=== PATIENT | female | born 1995 | race American Indian/Alaskan Native ===

== ENCOUNTER 2017-03-02 06:24 | Emergency (ER) | payer OTHER ==
[2017-03-02 06:36] VITALS: RESP 16
[2017-03-02] MEDS ORDERED: Tobramycin 0.3% OPHT SOLN OU STA (07:31)
--- NOTE | 2017-03-02 07:43 | C.PDOC ---
History Of Present Illness 21 yr old female presents to the ER with complaints of redness in both eye and runny nose for 1 day. Patient reports she is 37 weeks . Patient denies fever, vision changes, chest pain, SOB, nausea, vomiting, abdominal pain, diarrhea, vaginal discharge, vaginal bleeding, weakness or numbness. Time Seen by Provider: 03/02/17 07:13 Chief Complaint (Nursing): Eye Problem History Per: Patient History/Exam Limitations: no limitations Onset/Duration Of Symptoms: Days (1) Current Symptoms Are (Timing): Still Present Injury To Eye?: No Recent travel outside of the [place]: No Past Medical History Reviewed: Historical Data, Nursing Documentation, Vital Signs Vital Signs: Last Vital Signs Temp 98.2 F 03/02/17 08:10 Pulse 90 03/02/17 08:10 Resp 16 03/02/17 08:10 BP 135/70 03/02/17 08:10 Pulse Ox 99 03/02/17 08:10 - Medical History PMH: No Chronic Diseases Surgical History: No Surg Hx Family History: States: No Known Family Hx - Social History Hx Tobacco Use: No Hx Alcohol Use: No Hx Substance Use: No - Immunization History Hx Influenza Vaccination: No Hx Pneumococcal Vaccination: No Review Of Systems Except As Marked, All Systems Reviewed And Found Negative. Constitutional: Negative for: Fever Eyes: Positive for: Eyelid Inflammation, Redness (Bilateral ). Negative for: Vision Change ENT: Positive for: Nose Discharge (Runny nose) Cardiovascular: Negative for: Chest Pain Respiratory: Negative for: Shortness of Breath Gastrointestinal: Negative for: Nausea, Vomiting, Abdominal Pain, Diarrhea Genitourinary: Negative for: Vaginal Discharge, Vaginal Bleeding Neurological: Negative for: Weakness, Numbness Physical Exam - Physical Exam Appears: Non-toxic, No Acute Distress Skin: Warm, Dry, No Rash Head: Atraumatic, Normacephalic Eye(s): bilateral: PERRL, EOMI, Other (Bilateral injection. Bilateral crusting.) , right: Eyelid Inflammation Ear(s): Bilateral: Normal Oral Mucosa: Moist Throat: Normal, No Erythema, No Exudate Neck: Normal, Normal ROM, Supple Chest: Symmetrical, No Tenderness Cardiovascular: Rhythm Regular, No Friction Rub, No Murmur Respiratory: Normal Breath Sounds, No Rales, No Rhonchi, No Wheezing Gastrointestinal/Abdominal: Normal Exam, Soft, No Tenderness, No Guarding, No Rebound Extremity: Normal ROM, No Swelling Neurological/Psych: Oriented x3, Normal Speech Gait: Steady ED Course And Treatment O2 Sat by Pulse Oximetry: 98 Progress Note: Treated with tobramycin opth solution. Discharged in stable condition, advised ti follow up with SERVER and opthomology in 2 days Reassessment Condition: Improved Medical Decision Making Medical Decision Making: PLAN: * Tobermycin OU Disposition - Disposition Referrals: Domingo Friedman MD [Staff Provider] - Disposition: HOME/ ROUTINE Disposition Time: 08:20 Condition: GOOD Additional Instructions: return to ED if any increase symptoms Prescriptions: Tobramycin 0.3% [Tobramycin 5 Ml] 2 drop OP Q6 #1 bottle Instructions: Conjunctivitis (ED) - POA Present On Arrival: None - Clinical Impression Clinical Impression: Eye infection, Conjunctivitis - PA / [employer] / Resident Statement MD/DO has reviewed & agrees with the documentation as recorded. - Scribe Statement The provider has reviewed the documentation as recorded by the Scribe Leatha Cook All medical record entries made by the Scribe were at my direction and personally dictated by me. I have reviewed the chart and agree that the record accurately reflects my personal performance of the history, physical exam, medical decision making, and the department course for this patient. I have also personally directed, reviewed, and agree with the discharge instructions and disposition.
--- NOTE | 2017-03-02 07:46 | C.PDOC ---
Time Seen by Provider: 03/02/17 07:13 Chief Complaint (Nursing): Eye Problem Past Medical History Vital Signs: Last Vital Signs Temp 98.3 F 03/02/17 06:33 Pulse 91 H 03/02/17 06:33 Resp 16 03/02/17 06:33 BP 129/84 03/02/17 06:33 Pulse Ox 98 03/02/17 06:33 Family History: States: Unknown Family Hx - Social History Hx Alcohol Use: No Hx Substance Use: No - Immunization History Hx Influenza Vaccination: No Hx Pneumococcal Vaccination: No ED Course And Treatment O2 Sat by Pulse Oximetry: 98 Disposition Counseled Patient/Family Regarding: Diagnosis, Need For Followup, Rx Given - Disposition Referrals: Domingo Friedman MD [Staff Provider] - Disposition: HOME/ ROUTINE Disposition Time: 08:00 Condition: GOOD Prescriptions: Tobramycin 0.3% [Tobramycin 5 Ml] 2 drop OP Q6 #1 bottle Instructions: Conjunctivitis (ED)
[2017-03-02] MEDS ORDERED: Tobramycin 0.3% OPH OINT ONE (07:54)
[2017-03-02 08:17] VITALS: BP 135/70; PULSE 90; TEMP 98.2
[2017-03-02 08:22] VITALS: O2SAT 98
== END 2017-03-02 08:10 | disposition home or self-care (01) ==
LOC: C.ER 06:24
DX: H10.9 Unspecified conjunctivitis (principal); H44.003 Unspecified purulent endophthalmitis, bilateral

== ENCOUNTER 2017-04-04 17:52 | Emergency (ER) | payer OTHER ==
--- NOTE | 2017-04-04 18:08 | C.PDOC ---
History Of Present Illness Patient is a 22 year old female presents to the ER c/o shivering and lightheadedness since this morning. Patient notes that she had similar symptoms in March after she delivered her baby--the shivering lasted for 2 days and was told that her blood count was low. Patient reports that an iron infusion was going to be adminstered while admitted to the hospital but when shivering self resolved they did not administer it. Patient notes shivering is back today. Patient denies vaginal bleeding, fever, nausea, vomiting, or any other complaints. Patients PMD is Dr. Hou. Time Seen by Provider: 04/04/17 18:03 Chief Complaint (Nursing): Dizziness/Lightheaded History Per: Patient History/Exam Limitations: no limitations Onset/Duration Of Symptoms: Hrs Current Symptoms Are (Timing): Still Present Fall Associated With With Symptoms: No Severity: Mild Recent travel outside of the [place]: No Additional History Per: Patient Past Medical History Reviewed: Historical Data, Nursing Documentation, Vital Signs Vital Signs: Last Vital Signs Temp 99.2 F 04/04/17 18:15 Pulse 85 04/04/17 18:15 Resp 14 04/04/17 18:15 BP 137/83 04/04/17 18:15 Pulse Ox 99 04/04/17 18:15 - Medical History PMH: Anemia Family History: States: Unknown Family Hx - Social History Hx Tobacco Use: No Hx Alcohol Use: No Hx Substance Use: No - Immunization History Hx Influenza Vaccination: No Hx Pneumococcal Vaccination: No Review Of Systems Except As Marked, All Systems Reviewed And Found Negative. Constitutional: Positive for: Other (Shivering). Negative for: Fever Gastrointestinal: Negative for: Nausea, Vomiting Neurological: Positive for: Other (Lightheadedness) Physical Exam - Physical Exam Appears: Well, Non-toxic, No Acute Distress, Other (no shivering during my physical exam) Skin: Normal Color, Warm, Dry Head: Atraumatic, Normacephalic Eye(s): bilateral: Conjunctiva Pale (Conjunctiva palpebral) Ear(s): Bilateral: Normal Nose: Normal Oral Mucosa: Moist Tongue: Normal Appearing Lips: Normal Appearing Throat: Normal Neck: Normal, Normal ROM Lymphatic: Deferred Chest: Symmetrical Cardiovascular: Rhythm Regular, No Murmur Respiratory: Normal Breath Sounds, No Rales, No Rhonchi, No Wheezing Gastrointestinal/Abdominal: Normal Exam, Bowel Sounds, Soft, No Tenderness Rectal: Deferred Back: Normal Inspection Extremity: Capillary Refill (less than 2 seconds) Extremity: Bilateral: Atraumatic Neurological/Psych: Oriented x3, Normal Speech, Normal Cognition Medical Decision Making Medical Decision Making: Initial Impression: Shivering by history Differential Diagnosis includes but is not limited to: anemia, eletrolyte imbalance Initial Plan: -Blood labs -IV fluids -UA -Reassess and disposition Disposition - Disposition Disposition Time: 19:00 Condition: FAIR - Clinical Impression Clinical Impression: Lightheadedness - Scribe Statement The provider has reviewed the documentation as recorded by the Scribe Cassandra champagne All medical record entries made by the Scribe were at my direction and personally dictated by me. I have reviewed the chart and agree that the record accurately reflects my personal performance of the history, physical exam, medical decision making, and the department course for this patient. I have also personally directed, reviewed, and agree with the discharge instructions and disposition. Physician Patient Turnover Patient Signed Over To: Felisha Hahn Handoff Comments: Follow up lab work and reassess patient
[2017-04-04] MEDS ORDERED: Sodium Chloride 0.9% 1,000 ML IV ONE (18:13)
[2017-04-04] MEDS ORDERED: Sodium Chloride 0.9% 1,000 ML ONE (18:27)
[2017-04-04 18:45] LABS: RBC URINE 12 /hpf (0-3); URINE BACTERIA MOD (<OCC); URINE BILIRUBIN NEGATIVE (NEGATIVE); URINE BLOOD 1+ (NEGATIVE); URINE COLOR Yellow (YELLOW); URINE GLUCOSE (UA) NORMAL (Normal); URINE KETONE NEGATIVE (NEGATIVE); URINE LEUKOCYTE ESTERASE 3+ Leu/uL (Negative); URINE PROTEIN NEGATIVE (NEGATIVE); WBC URINE 27 /hpf (0-5)
[2017-04-04 18:47] LABS: BASO # 0.1 K/uL (0.0-0.2); BASO % 0.7 % (0.0-2.0); EOS # 0.2 K/uL (0.0-0.7); EOS % 2.5 % (0.0-4.0); HEMATOCRIT 31.7 % (34.0-47.0); LYMPH # 2.1 K/uL (1.0-4.3); LYMPH % 24.9 % (20.0-40.0); MEAN CELL VOLUME 75.7 fL (81.0-99.0); MEAN CORPUSCULAR HEMOGLOBIN 23.4 pg (27.0-31.0); MEAN CORPUSCULAR HGB CONC 30.9 g/dL (33.0-37.0); MEAN PLATELET VOLUME 6.9 fL (7.2-11.7); MONO # 0.5 K/uL (0.0-0.8); MONO % 5.9 % (0.0-10.0); RED CELL DISTRIBUTION WIDTH 14.7 % (11.5-14.5); WHITE BLOOD COUNT 8.4 K/uL (4.8-10.8)
[2017-04-04 18:55] LABS: POTASSIUM 2.8 mmol/L (3.6-5.2); SODIUM 139 mmol/L (132-148)
[2017-04-04 18:58] LABS: ALB/GLOB RATIO 1.2 (1.0-2.1); ALKALINE PHOSPHATASE 117 U/L (38-126); ALT/SGPT 22 U/L (9-52); AST/SGOT 23 U/L (14-36); BILIRUBIN,TOTAL 0.9 mg/dL (0.2-1.3); BLOOD UREA NITROGEN 6 mg/dL (7-17); CARBON DIOXIDE 31 mmol/L (22-30); GFR AFRICAN-AMERICAN > 60; GLUCOSE,RANDOM 104 mg/dL (65-105); TOTAL PROTEIN 7.5 g/dL (6.3-8.3)
[2017-04-04 18:59] LABS: CALCIUM 8.7 mg/dl (8.6-10.4)
[2017-04-04] MEDS ORDERED: Potassium Chloride 20 mEq/15 ml LIQ UD PO STA (19:01)
[2017-04-04] MEDS ORDERED: Potassium Chloride 20 mEq/15 ml LIQ UD ONE (19:31)
[2017-04-04 19:37] LABS: VENOUS BLOOD GAS BASE EXCESS 1.7 mmol/L (0.0-2.0); VENOUS BLOOD GAS PCO2 42 mmHg (40-60); VENOUS BLOOD PH 7.41 (7.32-7.43)
[2017-04-04] MEDS ORDERED: cefTRIAXone IV 1 gm in Dextros 50 ML IVPB ONE ×2 (19:55→20:30)
[2017-04-04 21:27] VITALS: BP 130/80; PULSE 82; RESP 20; TEMP 99; O2SAT 97
[2017-04-05 17:26] LABS: CHLORIDE 95 mmol/L (98-107)
--- NOTE | 2017-04-09 07:45 | CARD ---
APPROVED REPORT EKG Measurement Heart [id number] <Conclusion> Normal sinus rhythm Possible Left atrial enlargement Borderline ECG
== END 2017-04-04 21:26 | disposition home or self-care (01) ==
LOC: C.ER 17:52
DX: N39.0 Urinary tract infection, site not specified (principal); D64.9 Anemia, unspecified; E87.6 Hypokalemia; R42 Dizziness and giddiness
CPT/HCPCS: 80053; 81001; 82803; 85025; 93005; 96361; 96365; 96366; 96367; 99285; J0696; J3480; J7040